=== PATIENT | female | born 1970 | race Caucasian/White ===

== ENCOUNTER 2020-08-01 09:48 | Emergency (ER) | payer MEDICARE, OTHER ==
[~2020-08-01] VITALS: Ht 167.6 cm; Wt 84.1 kg
[~2020-08-01 09:48] MED LIST: ACIPHEX20 MG PO; ASPIRIN E.C. 8181 MG PO; COZAAR 50MG50 MG/TAB PO; DESYREL 100MG100 MG PO; FIBER GUMMIES2.5 GM PO; HAIRSKINNAILS PO; IMITREX50 MG PO; LASIX 40MG TABL40 MG PO; LIPITOR20 MG PO; MAG-OX 400400 MG/TAB PO; NAPROSYN500 MG PO; NUCYNTA ER100 MG PO; PROAIR HFA0.09 MG/AC IH; PROBIOTIC FORMU1 CAP PO; RT ADVAIR HFA 412 GM IH; SLEEP AID50 MG PO; SYNTHROID0.075 MG/T PO; TOPROL XL 50MG50 MG PO
[2020-08-01 09:57] VITALS: TEMP 98.3
[2020-08-01] MEDS ORDERED: PLAVIX 75MG TAB75 MG PO (10:13)
[2020-08-01] MEDS ORDERED: ACIPHEX20 MG PO (10:13)
[2020-08-01] MEDS ORDERED: ASPIRIN 81M81 MG/TA2 PO (10:13)
[2020-08-01] MEDS ORDERED: ENTRESTO 24 MG1 EACH PO (10:14)
[2020-08-01] MEDS ORDERED: COLACE 100100 MG/CAP PO (10:14)
[2020-08-01] MEDS ORDERED: RT ADVAIR 128 DISKUS IH (10:15)
[2020-08-01] MEDS ORDERED: LASIX 20MG TABL20 MG PO (10:16)
[2020-08-01] MEDS ORDERED: SYNTHROID0.075 MG/T PO (10:17)
[2020-08-01] MEDS ORDERED: IMITREX50 MG PO (10:17)
[2020-08-01] MEDS ORDERED: LIPITOR20 MG PO (10:21)
[2020-08-01] MEDS ORDERED: MAG-OX 400400 MG/TAB PO (10:22)
[2020-08-01] MEDS ORDERED: TOPROL XL 25MG25 MG PO (10:23)
[2020-08-01] MEDS ORDERED: NAPROSYN500 MG PO (10:24)
[2020-08-01] MEDS ORDERED: MIRALAX PA17 GM/Dose PO (10:24)
[2020-08-01] MEDS ORDERED: KLOR-CON20 MEQ PO (10:25)
[2020-08-01] MEDS ORDERED: PROAIR HFA0.09 MG/AC IH (10:26)
[2020-08-01] MEDS ORDERED: SPIRIVA RE2.5 MCG/Ac IH (10:26)
[2020-08-01] MEDS ORDERED: DESYREL 100MG100 MG PO (10:27)
[2020-08-01] MEDS ORDERED: NUCYNTA ER100 MG PO (10:27)
[2020-08-01 11:51] LABS: ALANINE AMINOTRANSFERASE 155 U/L (4-34); ALBUMIN 4.3 gm/dL (3.5-5.0); ALKALINE PHOSPHATASE 214 U/L (50-136); ANION GAP 9 mmol/L (7-16); AST,SGOT 147 U/L (15-37); BILIRUBIN,TOTAL 0.8 mg/dL (0.0-1.0); BLOOD UREA NITROGEN 29 mg/dL (7-17); CALCIUM 9.4 mg/dL (8.4-10.2); CARBON DIOXIDE 31 mmol/L (22-30); CHLORIDE 97 mmol/L (98-107); CREATININE, serum 1.42 (0.52-1.25); GLUCOSE 73 mg/dL (74-106); POTASSIUM 3.9 mmol/L (3.4-5.0); SODIUM 137 mmol/L (137-145); TOTAL PROTEIN 7.8 gm/dL (6.4-8.2)
[2020-08-01 11:53] LABS: BASO # 0.1 (0.0-0.2); BASO % 0.8 % (0.0-2.0); EOS # 0.2 (0.0-0.7); EOS % 3.8 % (0-4.0); GRAN # 3.8 (1.4-6.5); GRAN % 61.8 % (42.2-75.2); HEMOGLOBIN 12.5 g/dl (12.5-16.0); LYMPH # 1.6 (1.2-3.4); LYMPH % 25.7 % (20.0-51.0); MEAN CELL VOLUME 91 fl (80.0-100.0); MEAN CORPUSCULAR HEMOGLOBIN 31 pg (27.0-31.0); MEAN CORPUSCULAR HGB CONC 34 g/dl (33.0-37.0); MEAN PLATELET VOLUME 9.3 fl (7.4-10.4); MONO # 0.4 (0.1-0.6); MONO % 6.9 % (1.7-9.3); PLATELET COUNT 271 K/mm3 (130-400); RED BLOOD COUNT 4.04 M/mm3 (4.10-5.30); REDCELL DISTRIBUTION WIDTH-CV 13.8 % (11.5-14.5)
[2020-08-01 11:54] LABS: HEMATOCRIT 36.9 % (37.0-47.0)
[2020-08-01 12:07] LABS: TROPONIN-I < 0.012 ng/mL (0.000-0.035)
[2020-08-01 14:00] VITALS: BP 86/57; PULSE 71
== END 2020-08-01 14:09 | disposition home or self-care (01) ==
LOC: COL.ER 09:48
PROVIDERS: Emergency Medicine
DX: R42 Dizziness and giddiness (principal); I50.9 Heart failure, unspecified; Z95.0 Presence of cardiac pacemaker; Z85.72 Personal history of non-Hodgkin lymphomas; Z85.3 Personal history of malignant neoplasm of breast; Z79.82 Long term (current) use of aspirin; Z79.02 Long term (current) use of antithrombotics/antiplatelets
CPT/HCPCS: J7030

== ENCOUNTER → 2020-11-01 | Outpatient (CLI) | payer MEDICARE, OTHER ==
--- NOTE | 2020-10-30 14:11 | NUR ---
LMOM WITH CALL BACK NUMBER
[~2020-11-01] MED LIST changes: +ASPIRIN 81M81 MG/TA2 PO; +COLACE 100100 MG/CAP PO; +ENTRESTO 24 MG1 EACH PO; +KLOR-CON20 MEQ PO; +LASIX 20MG TABL20 MG PO; +MIRALAX PA17 GM/Dose PO; +PLAVIX 75MG TAB75 MG PO; +RT ADVAIR 128 DISKUS IH; +SPIRIVA RE2.5 MCG/Ac IH; +TOPROL XL 25MG25 MG PO
== END ==
LOC: COL.RAD 08:02
DX: G43.109 Migraine with aura, not intractable, without status migrainosus (principal); J90 Pleural effusion, not elsewhere classified; M50.31 Other cervical disc degeneration, high cervical region
CPT/HCPCS: A9585

== ENCOUNTER 2020-11-02 14:57 | Emergency (ER) | payer MEDICARE, OTHER ==
[~2020-11-02] VITALS: Ht 165.1 cm; Wt 79.1 kg
[2020-11-02 15:03] VITALS: TEMP 97.5
[2020-11-02 17:34] LABS: BASO % 0.4 % (0.0-2.0); EOS # 0.2 (0.0-0.7); GRAN # 4.2 (1.4-6.5); GRAN % 60.5 % (42.2-75.2); HEMOGLOBIN 12.8 g/dl (12.5-16.0); LYMPH % 28.5 % (20.0-51.0); MEAN CELL VOLUME 90 fl (80.0-100.0); MEAN CORPUSCULAR HEMOGLOBIN 30 pg (27.0-31.0); MEAN CORPUSCULAR HGB CONC 34 g/dl (33.0-37.0); MEAN PLATELET VOLUME 9.5 fl (7.4-10.4); MONO # 0.5 (0.1-0.6); MONO % 7.3 % (1.7-9.3); PLATELET COUNT 251 K/mm3 (130-400); RED BLOOD COUNT 4.23 M/mm3 (4.10-5.30); REDCELL DISTRIBUTION WIDTH-CV 14.3 % (11.5-14.5)
[2020-11-02 17:56] LABS: ALANINE AMINOTRANSFERASE 27 U/L (4-34); ALBUMIN 3.8 gm/dL (3.5-5.0); ALKALINE PHOSPHATASE 96 U/L (50-136); ANION GAP 7 mmol/L (7-16); AST,SGOT 43 U/L (15-37); BILIRUBIN,TOTAL 0.6 mg/dL (0.0-1.0); BLOOD UREA NITROGEN 18 mg/dL (7-17); CALCIUM 8.9 mg/dL (8.4-10.2); CARBON DIOXIDE 32 mmol/L (22-30); CHLORIDE 98 mmol/L (98-107); CREATININE, serum 1.23 (0.52-1.25); GLUCOSE 87 mg/dL (74-106); POTASSIUM 3.4 mmol/L (3.4-5.0); SODIUM 137 mmol/L (137-145); TOTAL PROTEIN 6.8 gm/dL (6.4-8.2)
[2020-11-02 18:08] LABS: TROPONIN-I < 0.012 ng/mL (0.000-0.035)
[2020-11-02 19:22] VITALS: BP 114/69; PULSE 65
== END 2020-11-02 18:30 | disposition home or self-care (01) ==
LOC: COL.ER 14:57
PROVIDERS: Nurse Practitioner Primary Care
DX: N17.9 Acute kidney failure, unspecified (principal); I95.9 Hypotension, unspecified; J90 Pleural effusion, not elsewhere classified; I50.9 Heart failure, unspecified; K21.9 Gastro-esophageal reflux disease without esophagitis; E03.9 Hypothyroidism, unspecified; G43.909 Migraine, unspecified, not intractable, without status migrainosus; Z85.3 Personal history of malignant neoplasm of breast; Z79.82 Long term (current) use of aspirin; Z79.02 Long term (current) use of antithrombotics/antiplatelets; Z79.890 Hormone replacement therapy
CPT/HCPCS: Q9967